=== PATIENT | male | born 1960 | race Caucasian/White ===

== ENCOUNTER 2022-02-03 10:47 | Observation (INO) ==
[2022-02-03] MEDS ORDERED: 0.9 % Sodium Chloride 500 ML IVC ONE (11:01)
[2022-02-03 11:16] LABS: Basophils # 0.1 K/mcL (0.0-0.2); Basophils % 0.8 %; Eosinophils # 0.1 K/mcL (0.0-0.6); Eosinophils % 1.4 %; Hematocrit 35.7 % (37.5-50.1); Hemoglobin 12.7 g/dL (12.9-16.9); Immature Granulocytes % 0.6 % (0-4); Lymphocytes # 1.8 K/mcL (0.6-4.6); Lymphocytes % 22.8 %; Mean Corpuscular HGB Conc 35.6 g/dL (31.6-35.5); Mean Corpuscular Hemoglobin 30.4 pg (28.0-33.3); Mean Corpuscular Volume 85.4 fL (83.0-100.0); Mean Platelet Volume 8.3 fL (9.4-12.4); Monocytes # 0.9 K/mcL (0.0-1.3); Monocytes % 10.7 %; Neutrophils # 5.1 K/mcL (1.6-8.9); Platelet Count 384 K/mcL (140-400); Red Blood Count 4.18 M/mcL (4.19-5.50); Red Cell Distribution Width 11.8 % (11.5-14.5); Segmented Neutrophils % 63.7 %
[2022-02-03 11:25] LABS: INR 1.6; Prothrombin Time 17.5 Seconds (9.4-12.1)
[2022-02-03 11:28] LABS: Activated Partial Thrombo Time 46.3 Seconds (26.0-36.0)
[2022-02-03 11:32] LABS: BUN/Creatinine Ratio 14 (6-26); Blood Urea Nitrogen 11 mg/dL (8-23); Calcium 8.8 mg/dL (8.6-10.3); Carbon Dioxide 28 mEq/L (23-29); Chloride 87 mEq/L (98-107); Glucose 89 mg/dL (70-105); Osmolality,Calculated 251 (280-300); Potassium 3.7 mEq/L (3.5-5.1); Sodium 121 mEq/L (136-145); eGFR For African Americans > 60 (> 60); eGFR For Non-African Americans > 60 (> 60)
[2022-02-03 11:35] LABS: Troponin I < 0.03 ng/mL (< 0.04)
[2022-02-03] MEDS ORDERED: Iopamidol - 370 500 ML MLS IVP ONE (11:36)
[2022-02-03] MEDS ORDERED: 0.9 % Sodium Chloride 1,000 ML IVC SCH ×2 (12:45→13:57)
[2022-02-03] MEDS ORDERED: *HR* HYDROcodone/Acet 5/325 mg TABLET PO ONE (13:28)
[2022-02-03] MEDS ORDERED: *HR* LORazepam 2 MG/ML VIAL IVP ONE (13:28)
[2022-02-03] MEDS ORDERED: Ondansetron 4 MG/2 ML VIAL IVP PRN (13:50)
[2022-02-03] MEDS ORDERED: *HR* HYDROcodone/Acet 5/325 mg TABLET PO PRN (13:50)
[2022-02-03] MEDS ORDERED: Naloxone 0.4 MG/ML INJ IVP PRN (13:50)
[2022-02-03] MEDS ORDERED: Acetaminophen 325 MG TABLET PO PRN (13:50)
[2022-02-03 15:48] VITALS: RESP 18; TEMP 97.5
[2022-02-03] MEDS ORDERED: Nicotine 14 MG PATCH.TD24 TD SCH (16:15)
[2022-02-03 17:14] LABS: Magnesium 1.6 mg/dL (1.6-2.6)
[2022-02-03] MEDS ORDERED: Doxycycline 100 MG in 0.9 % Sodium Chloride Mini Bag 100 ML IVPB SCH (18:00)
[2022-02-03 18:19] VITALS: BP 173/83; PULSE 69; O2SAT 96
[2022-02-03 21:59] LABS: Adenovirus Not Detected (Not Detect); Bordetella Pertussis Not Detected (Not Detect); Chlamydophila pneumoniae Not Detected (Not Detect); Coronavirus 229E Not Detected (Not Detect); Coronavirus HKU1 Not Detected (Not Detect); Coronavirus NL63 Not Detected (Not Detect); Coronavirus OC43 Not Detected (Not Detect); Human Metapneumovirus Not Detected (Not Detect); Human Rhinovirus/Enterovirus Not Detected (Not Detect); Influenza A Subtype 2009 H1 Not Detected (Not Detect); Influenza B Not Detected (Not Detect); Mycoplasma pneumoniae Not Detected (Not Detect); Parainfluenza Virus 1 Not Detected (Not Detect); Parainfluenza Virus 2 Not Detected (Not Detect); Parainfluenza Virus 3 Not Detected (Not Detect); Parainfluenza Virus 4 Not Detected (Not Detect); Respiratory Syncytial Virus Not Detected (Not Detect); SARS-CoV-2 Not Detected (Not Detect)
[2022-02-04] MEDS ORDERED: *HR* Enoxaparin 40 MG/0.4 ML SYRINGE SQ SCH (06:00)
== END 2022-02-03 22:49 | disposition short-term general hospital (02) ==
LOC: EMEROOPIK 10:47 → INPPIK 10:47
PROVIDERS: ADMIT Family Medicine; ATTEND Family Medicine